=== PATIENT | male | born 1990 | race Two or more races ===

== ENCOUNTER 2021-05-14 09:58 | Emergency (ER) | payer SELFPAY ==
[~2021-05-14] VITALS: Ht 175.3 cm; Wt 102.1 kg
[2021-05-14] MEDS ORDERED: TETANUS-DIPTH-ACEL PERTUSSIS 0.5ML SYR Tdap IM ONE (14:00)
[2021-05-14 14:16] VITALS: BP 122/83
[2021-05-14] MEDS ORDERED: cefTRIAXone SOD 1,000 MG VL IM ONE (15:00)
[2021-05-14] MEDS ORDERED: ONDANSETRON ODT 4 MG TAB PO ONE (15:00)
[2021-05-14] MEDS ORDERED: ACETAMINOPHEN/CODEINE#3 (300/30mg) TAB PO ONE (15:00)
[2021-05-14] MEDS ORDERED: BACITRACIN TOP OINT 1 UD PKG TOP ONE (15:15)
== END 2021-05-14 16:03 | disposition home or self-care (01) ==
LOC: EDBD 09:58 → ER 09:58
DX: S01.01XA Laceration without foreign body of scalp, initial encounter (principal); X58.XXXA Exposure to other specified factors, initial encounter; Y93.89 Activity, other specified; Y92.89 Other specified places as the place of occurrence of the external cause; Y99.8 Other external cause status
CPT/HCPCS: 12005; 70450; 72125; 90471; 90715; 96372; 99284; J0696; Q0162